=== PATIENT | female | born 1995 | race American Indian/Alaskan Native ===

== ENCOUNTER 2017-04-06 19:28 | Emergency (ER) | payer OTHER ==
[2017-04-06 20:28] VITALS: BP 109/70
[2017-04-06] MEDS ORDERED: TYLENOL PO ONE (20:29)
[2017-04-06] MEDS ORDERED: TYLENOL ONE (20:33)
[2017-04-07] MEDS ORDERED: TORADOL IM ONE (00:42)
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
== END 2017-04-07 02:32 | disposition home or self-care (01) ==
LOC: ED 19:28
DX: S13.4XXA Sprain of ligaments of cervical spine, initial encounter (principal); V89.2XXA Person injured in unspecified motor-vehicle accident, traffic, initial encounter; Y93.89 Activity, other specified; Y99.8 Other external cause status; Y92.488 Other paved roadways as the place of occurrence of the external cause
CPT/HCPCS: 70450; 81025; 96372; 99284; J1885